=== PATIENT | male | born 1955 | race Caucasian/White ===

== ENCOUNTER 2016-09-10 05:49 | Inpatient (IN) | payer BC ==
[2016-09-03 10:28] LABS: BASOPHILS 0.4 %; BASOPHILS ABSOLUTE 0.02 10/3/uL (0.0-0.16); EOSINOPHILS 3.9 %; EOSINOPHILS ABSOLUTE 0.21 10/3/uL (0.0-0.53); HEMATOCRIT 40.8 % (40.0-51.0); HEMOGLOBIN 14.3 g/dL (13.6-17.8); IMMATURE GRANULOCYTES 0.2 %; IMMATURE GRANULOCYTES ABSOLUTE 0.01 10/3/uL (0.0-0.11); LYMPHOCYTES 27.7 %; LYMPHOCYTES ABSOLUTE 1.48 10/3/uL (0.67-4.30); MEAN CORPUSCULAR HEMOGLOB 30.6 pg (26.0-34.0); MEAN CORPUSCULAR VOLUME 87.4 fL (80-100); MEAN PLATELET VOLUME 9.6 fL (9.2-13.0); MONOCYTES 8.8 %; MONOCYTES ABSOLUTE 0.47 10/3/uL (0.21-1.20); NEUTROPHILS ABSOLUTE 3.16 10/3/uL (2.02-8.40); PLATELET COUNT 214 10/3/uL (150-400); RED CELL COUNT 4.67 10/6/uL (4.7-6.1); WHITE BLOOD CELLS 5.4 10/3/uL (4.5-10.5)
[2016-09-03 10:30] LABS: MANUAL DIFF NO %
[2016-09-03 10:38] LABS: PARTIAL THROMBO TIME 26.6 SEC (22.5-37.2); PROTIME (NOT ORD) 13.3 SEC (12.0-14.5)
[2016-09-03 10:44] LABS: CALCIUM, SERUM 9.6 MG/DL (8.5-10.4); CHLORIDE, SERUM 94 MMOL/L (96-112); CO2 (CARBON DIOXIDE) 31 MMOL/L (24-34); GFR AFRICAN AMERICAN 94 ML/MIN (>=60); GFR NON AFRICAN AMERICAN 81 ML/MIN (>=60); GLUCOSE, SERUM 123 MG/DL (60-99); SODIUM, SERUM 131 MMOL/L (135-148)
[2016-09-03 10:45] LABS: BUN (BLOOD UREA NITROGEN) 8 MG/DL (6-23)
[2016-09-03 11:09] LABS: ASCORBIC ACID (UR NOT ORDER) NEG (NEG); BILIRUBIN, URINE NEGATIVE (NEG); KETONE, URINE NEGATIVE (NEG); LEUKOCYTE ESTERASE(NOT OR NEG (NEG); WBC (NOT ORDERED) (RFLEX) < 1 (0-5)
--- NOTE | ~2016-09-10 | OP ---
Record Of Operation [facility] [address] [place]. [address] NAME: JEFF JAIN JR : 57 STATUS : ADM IN PAT#: [id number] AGE: 61 ADM/REG DATE : 09/10/16 MR#: [id number] REPORT SERV DATE: 09/10/16 DICTATED BY: GIL BEYER DATE: 09/10/16 REPORT STATUS : Draft TRANSCRIBED BY: MODL DATE: 09/10/16 DATE OF PROCEDURE: 09/10/2016 PREOPERATIVE DIAGNOSIS: Adenocarcinoma of the prostate, clinical stage T1c, Toya score 4+3=7, maximum PSA 6.3. POSTOPERATIVE DIAGNOSIS: Adenocarcinoma of the prostate, clinical stage T1c, Bethune score 4+3=7, maximum PSA 6.3. PROCEDURE: 1. Laparoscopic robot-assisted radical prostatectomy. 2. Laparoscopic robot-assisted bilateral pelvic node sampling. SURGEON: Gil Beyer M.D. AUTOMATION TECH: Alexi Woods. ANESTHESIA: General with local. ESTIMATED BLOOD LOSS: Estimated at 150 mL. FLUID REPLACEMENT: 3 L of crystalloid. DRAINS: 15 mm Marco drain in the prevesical space and an 18-Polish Beyer catheter per urethra. INDICATION: A 61-year-old male with the above diagnosis. TECHNIQUE: The patient was identified, brought to the operating room, administered general anesthetic agent by the Anesthesia Service and intubated. He was positioned into the dorsal lithotomy position and appropriately padded and secured to the table. The abdomen had previously been clipped. The entire abdomen, penis, groin, scrotum, and perineum were prepped and draped in usual sterile fashion. Balaji technique was placed a balloon trocar above the umbilicus. Once the pneumoperitoneum was created, three robot arm ports and two assistant speech language pathologist ports were placed under direct laparoscopic vision. The patient was placed in steep Trendelenburg and the da Araceli robot was brought to the table and mated to the ports. I took down some adhesions between the sigmoid colon and left pelvic sidewall. I opened the cul-de-sac and exposed the seminal structures. The left and right vasa deferentia were dissected out, clipped proximally, and transected distally. The left and right seminal vesicles were dissected out. Clips were placed on the lateral blood supply. Denonvilliers fascia was opened sharply and the rectum swept off the undersurface of the prostate all the way out to the apex, and the posterior side of the neurovascular bundles were mobilized off the undersurface of the prostate sharply. I then open the peritoneum just lateral to the median umbilical ligaments on each side and Record Of Operation [facility] [address] [place]. [address] NAME: JEFF JAIN JR : 57 STATUS : ADM IN PAT#: [id number] AGE: 61 ADM/REG DATE : 09/10/16 MR#: [id number] REPORT SERV DATE: 09/10/16 DICTATED BY: GIL BEYER DATE: 09/10/16 REPORT STATUS : Draft TRANSCRIBED BY: MODL DATE: 09/10/16 mobilized the bladder off the anterior abdominal wall and symphysis pubis. The urachus and median umbilical ligaments were divided near the umbilicus. The fat overlying the prostate gland was taken off with sharp dissection. The endopelvic fascia was pierced sharply at the prostatovesical junction and opened distally out to the puboprostatic ligaments bilaterally. The dorsal venous complex was isolated and secured with laparoscopic LEONID stapling device. It was oversewn with 3-0 PDS. I mobilize neurovascular bundles off the apices of the prostate on each side and carried the dissection back to the posterior pedicles bilaterally. I switched to 30-degree down lens and developed a plane between the bladder neck and the prostate. I opened the anterior bladder neck. The Beyer catheter was elevated to elevate the prostate. I then came to the posterior bladder neck and carried my dissection down to expose the previously exposed the seminal structures. Lateral attachments of the bladder taken off the prostate sharply. The posterior pedicles were secured with locking clips and divided. The prostate was now mobile all the way out to the apex of the prostate. Last attachments of the striated sphincter were taken off the apex of the prostate. The urethra was divided sharply and the posterior striated sphincter was divided sharply. The specimen was inspected, appears intact, and placed in specimen retrieval bag, and held for later retrieval. The abdominal pressure was lowered down to 7 mmHg and held there for the next 10 minutes. I irrigated the pelvis. I over sew part of the left neurovascular bundle on the left posterior pedicle and the right neurovascular bundle, and later I over sewed the right posterior pedicle. Once fastidious hemostasis had been achieved, I performed posterior reconstruction in two layers with 3-0 V-Loc. I then reconstructed the bladder neck with a horizontal mattress sutures of 3-0 PDS at the 3 o'clock and 9 o'clock position. I then did a modified van Velthoven vesicourethral anastomosis with 3-0 V-Loc. Once the anastomosis was completed, I inserted a new 18-Polish Beyer catheter. The anastomosis was tested by filling the bladder with 240 mL of saline. It holds without extravasation. The bladder was then drained. I then sample left and right obturator, external iliac, and internal iliac lymph nodes. The locking clips and metallic clips were used for lymphostasis and hemostasis. I then placed the lymph node packets into a specimen retrieval bag held for later retrieval. The instrument was taken out of the robot arm port and a 15 mm Marco drain was placed through that port and left in the prevesical space. At this point, I see some bleeding coming from the right posterior pedicle and it was oversewn with 3-0 PDS. Once that was secured, I removed the da Araceli robot and undocked. I removed the assistant speech language pathologist 12 mm port and closed the fascia there with a Perico-Kelechi endoscopic closure system. The strings of the specimen bag were transferred out through the umbilical port. The pneumoperitoneum was released. The patient was taken out of Trendelenburg and the other ports were removed under low pressure. No port site bleeding was noted. I extended my transverse incision in the fascia by a 1 cm in each direction and the skin by 1 cm cephalad. I then delivered the specimens out through the wound. I closed the fascia Record Of Operation [address] [place]. [address] NAME: JEFF JAIN : 57 STATUS : ADM IN PAT#: [id number] AGE: 61 ADM/REG DATE : 09/10/16 MR#: [id number] REPORT SERV DATE: 09/10/16 DICTATED BY: GIL BEYER DATE: 09/10/16 REPORT STATUS : Draft TRANSCRIBED BY: MODL DATE: 09/10/16 with [id number] 0 Vicryl sutures. The subcutaneous tissue of all ports were irrigated copiously and the skin was closed with 4-0 Monocryl. Dressings were applied. The catheter was secured to the patient. He was awakened and taken to the recovery unit in stable and satisfactory condition. PF/MODL Gil Beyer M.D. / [id number] CC: Gli Beyer M.D.
--- NOTE | ~2016-09-10 | PREOPHP ---
PreOp History and Physical [facility] [id number] [place]. [address] NAME: JEFF JAIN JR : 57 STATUS : ADM IN PAT#: [id number] AGE: 61 ADM/REG DATE : 09/10/16 MR#: [id number] REPORT SERV DATE: 09/10/16 DICTATED BY: GIL BEYER DATE: 09/09/16 REPORT STATUS : Draft TRANSCRIBED BY: MODL DATE: 09/09/16 CHIEF COMPLAINT: Adenocarcinoma of the prostate, clinical stage T1c, Granger score 4+3=7, maximum PSA is 6.3. HISTORY OF PRESENT ILLNESS: Mr. Jain is a 61-year-old male, who was recently diagnosed with adenocarcinoma of the prostate. An elevated PSA of 6.3 led to an MRI-guided biopsy. Biopsy revealed a Granger score 4+3=7. Different treatment options regarding the management of prostate cancer were proposed to the patient. He has decided to proceed with a laparoscopic robot-assisted radical prostatectomy and bilateral pelvic node sampling. He will be admitted after that procedure. The patient complains of some slowing of his urinary stream and of mild erectile dysfunction. PAST MEDICAL HISTORY: Significant for hypertension, dyslipidemia, coronary artery disease, diverticulosis, and diabetes mellitus. PAST SURGICAL HISTORY: Torn biceps tendon repair, carotid artery surgery, and polypectomy from his vocal cords. MEDICATIONS: Presently are rosuvastatin, omeprazole, niacin, hydrochlorothiazide, losartan, fish oil, carvedilol, aspirin which has been on hold, and amlodipine. ALLERGIES: NO KNOWN DRUG ALLERGIES. SOCIAL HISTORY: The patient does use marijuana. He reports three alcoholic beverages a day. He was a tobacco user, but quit 30-35 years ago. REVIEW OF SYSTEMS: Significant for mild erectile dysfunction and diabetes. Wears glasses. FAMILY HISTORY: Negative for prostate cancer. PHYSICAL EXAMINATION: GENERAL: Shows a well-developed, well-nourished male with a BMI of 42. He is awake, alert, and oriented x3. He is afebrile. VITAL SIGNS: Stable. HEENT: He has good cognitive function. Sclerae anicteric. NECK: Supple. LUNGS: Clear. HEART: Regular rate and rhythm. ABDOMEN: Soft and nontender. No inguinal hernias. : Penis normal. Testes are descended and nontender. Prostate is mildly enlarged and smooth, no nodules. EXTREMITIES: Lower extremities show no deformities. IMPRESSION: Adenocarcinoma of the prostate, clinical stage T1c, Toya score 4+3 from the PreOp History and Physical [address] [address] NAME: JEFF JAIN JR : 57 STATUS : ADM IN PAT#: [id number] AGE: 61 ADM/REG DATE : 09/10/16 MR#: [id number] REPORT SERV DATE: 09/10/16 DICTATED BY: GIL BEYER DATE: 09/09/16 REPORT STATUS : Draft TRANSCRIBED BY: MARIO DATE: 09/09/16 left apical area, negative staging CT scan and bone scan. PLAN: Laparoscopic robot-assisted radical prostatectomy and bilateral pelvic node sampling. Potential complications of bleeding, infection, urinary incontinence, bladder neck obstruction, loss of ejaculate, erectile dysfunction and injury to adjacent structures such as bladder, ureters, rectum, colon, intestine and nerves, as well as bowel obstruction and complications were explained to the patient. He manually and verbally consents to proceed. PF/MARIO Gil Beyer M.D. / [id number] CC: Jud King M.D.
[~2016-09-10 05:49] MED LIST: ASAB PO; COQ-10200 MG PO; COQ10100 MG OR; COREG25 PO; CRESTOR10 PO; CRESTOR5 MG PO; FISH-EPA1000 MG PO; HYZAAR 100/25 T1 TAB PO; NORV10 PO; PRILO PO; SLO-NIACIN250 MG PO; SLO-NIACIN500 MG PO
[2016-09-11 05:38] LABS: HEMATOCRIT 36.9 % (40.0-51.0)
[2016-09-11 05:48] LABS: BUN (BLOOD UREA NITROGEN) 5 MG/DL (6-23); CHLORIDE, SERUM 98 MMOL/L (96-112); CO2 (CARBON DIOXIDE) 27 MMOL/L (24-34); CREATININE 0.92 MG/DL (0.70-1.30); GFR AFRICAN AMERICAN 104 ML/MIN (>=60); GFR NON AFRICAN AMERICAN 90 ML/MIN (>=60); POTASSIUM, SERUM 3.7 MMOL/L (3.5-5.3); SODIUM, SERUM 136 MMOL/L (135-148)
[2016-09-11 05:49] LABS: CALCIUM, SERUM 8.6 MG/DL (8.5-10.4); GLUCOSE, SERUM 198 MG/DL (60-99)
[2016-09-11] MEDS ORDERED: NORCO1 TA1 PO (08:25)
== END 2016-09-11 11:16 | disposition home or self-care (01) | DRG 707 ==
LOC: SDC/OF 05:49 → PACU 11:51 → 4SO 14:40
PROVIDERS: Urology
PROC: 0VT34ZZ Resection of Bilateral Seminal Vesicles, Percutaneous Endoscopic Approach (ICD-10-PCS; 2016-09-10)
PROC: 07BC4ZZ Excision of Pelvis Lymphatic, Percutaneous Endoscopic Approach (ICD-10-PCS; 2016-09-10)
PROC: 8E0W4CZ Robotic Assisted Procedure of Trunk Region, Percutaneous Endoscopic Approach (ICD-10-PCS; 2016-09-10)
PROC: 0VT04ZZ Resection of Prostate, Percutaneous Endoscopic Approach (ICD-10-PCS; principal; 2016-09-10 06:30)
DX: C61 Malignant neoplasm of prostate (principal); Z68.41 Body mass index [BMI] 40.0-44.9, adult; I10 Essential (primary) hypertension; E78.5 Hyperlipidemia, unspecified; I25.10 Atherosclerotic heart disease of native coronary artery without angina pectoris; K57.90 Diverticulosis of intestine, part unspecified, without perforation or abscess without bleeding; E11.9 Type 2 diabetes mellitus without complications; F12.90 Cannabis use, unspecified, uncomplicated; N52.9 Male erectile dysfunction, unspecified; E66.01 Morbid (severe) obesity due to excess calories; Z87.891 Personal history of nicotine dependence; Z98.890 Other specified postprocedural states
CPT/HCPCS: 80048; 81001; 82962; 83735; 85014; 85018; 85025; 85610; 85730; 88307; 88309; 93005; A9270-GY; J0690; J1170; J2250; J2270; J2370; J2405; J2710; J3010